=== PATIENT | female | born 1955 | race Caucasian/White ===

== ENCOUNTER → 2016-11-14 | Outpatient (CLI) | payer OTHER ==
--- NOTE | 2016-11-14 13:17 | MM ---
Reason for exam: screening (asymptomatic). Last mammogram was performed 1 year and 1 month ago. History: Patient is postmenopausal and is nulliparous. Reductions of both breasts, September 2007. Took hormonal contraceptives for 4 years beginning at age 18. Physical Findings: A clinical breast exam by your physician is recommended on an annual basis and results should be correlated with mammographic findings. MG Screening Mammo w CAD Bilateral CC and MLO view(s) were taken. Prior study comparison: October 09, 2015, bilateral MG screening mammo w CAD. September 04, 2014, bilateral MG diagnostic mammo w CAD RAÚL. The breast tissue is almost entirely fat. There is no discrete abnormality. Post reduction change in the right breast. ASSESSMENT: Benign, BI-RAD 2 RECOMMENDATION: Routine screening mammogram of both breasts in 1 year.
== END | disposition home or self-care (01) ==
LOC: RADMAMWWP 08:11
PROVIDERS: ATTEND Family Medicine
DX: Z12.31 Encounter for screening mammogram for malignant neoplasm of breast (principal)

== ENCOUNTER → 2017-12-16 | Outpatient (CLI) | payer OTHER ==
--- NOTE | 2017-12-18 10:38 | MM ---
Reason for exam: screening (asymptomatic). Last mammogram was performed 1 year and 1 month ago. History: Patient is postmenopausal and is nulliparous. Reductions of both breasts, September 2007. Took hormonal contraceptives for 4 years beginning at age 18. Physical Findings: A clinical breast exam by your physician is recommended on an annual basis and results should be correlated with mammographic findings. MG Screening Mammo w CAD Bilateral CC and MLO view(s) were taken. Prior study comparison: November 14, 2016, bilateral MG screening mammo w CAD. October 09, 2015, bilateral MG screening mammo w CAD. There are scattered fibroglandular densities. Finding: There are typically benign round, diffuse/scattered calcifications in both breasts. No suspicious abnormality. No significant changes in finding since November 14, 2016 and October 09, 2015. ASSESSMENT: Benign, BI-RAD 2 RECOMMENDATION: Routine screening mammogram of both breasts in 1 year.
== END ==
LOC: RADMAMWWP 09:33
PROVIDERS: ATTEND Family Medicine
DX: Z12.31 Encounter for screening mammogram for malignant neoplasm of breast (principal)
CPT/HCPCS: 77067

== ENCOUNTER → 2019-01-15 | Outpatient (CLI) | payer OTHER ==
--- NOTE | 2019-01-17 09:47 | MM ---
Reason for exam: screening (asymptomatic). Last mammogram was performed 1 year and 1 month ago. History: Patient is postmenopausal and is nulliparous. Reductions of both breasts, September 2007. Took hormonal contraceptives for 4 years beginning at age 18. Physical Findings: A clinical breast exam by your physician is recommended on an annual basis and results should be correlated with mammographic findings. MG 3D Screening Mammo W/Cad Bilateral CC and MLO view(s) were taken. Prior study comparison: December 16, 2017, bilateral MG screening mammo w CAD. November 14, 2016, bilateral MG screening mammo w CAD. There are scattered fibroglandular densities. Stable benign calcifications. No significant changes when compared with prior studies. ASSESSMENT: Benign, BI-RAD 2 RECOMMENDATION: Routine screening mammogram of both breasts in 1 year.
== END | disposition home or self-care (01) ==
LOC: RADMAMWWP 08:21
PROVIDERS: ATTEND Family Medicine
DX: Z12.31 Encounter for screening mammogram for malignant neoplasm of breast (principal)
CPT/HCPCS: 77063; 77067

== ENCOUNTER → 2020-03-28 | Outpatient (CLI) | payer OTHER ==
--- NOTE | 2020-03-30 08:56 | MM ---
Reason for exam: screening (asymptomatic). Last mammogram was performed 1 year and 2 months ago. History: Patient is postmenopausal and is nulliparous. Reductions of both breasts, September 2007. Took hormonal contraceptives for 4 years beginning at age 18. Physical Findings: A clinical breast exam by your physician is recommended on an annual basis and results should be correlated with mammographic findings. MG 3D Screening Mammo W/Cad Bilateral CC and MLO view(s) were taken. Prior study comparison: January 15, 2019, bilateral MG 3d screening mammo w/cad. December 16, 2017, bilateral MG screening mammo w CAD. There are scattered fibroglandular densities. Stable band of tissue or fold posterior right breast. No significant changes when compared with prior studies. ASSESSMENT: Negative, BI-RAD 1 RECOMMENDATION: Routine screening mammogram of both breasts in 1 year.
== END | disposition home or self-care (01) ==
LOC: RADMAMWWP 11:04
PROVIDERS: ATTEND Family Medicine
DX: Z12.31 Encounter for screening mammogram for malignant neoplasm of breast (principal)
CPT/HCPCS: 77063; 77067

== ENCOUNTER 2020-05-28 09:22 | Day surgery (SDC) | payer OTHER ==
[2020-05-25 13:02] VITALS: BMI 28.8
[~2020-05-28 09:22] MED LIST: DEXAMETHASONE SOD PHOSPHATE 10 MG/ML 1 ML VIAL IV ONE; HYDROmorphone 0.5 MG/0.5 ML SYRINGE IVP PRN; LACTATED RINGERS 1,000 ML IV SCH; ONDANSETRON 4 MG/2 ML VIAL IVP ONE
[2020-05-28 09:50] VITALS: TEMP 98.2
[2020-05-28] MEDS ORDERED: LIDOCAINE 1% (10MG/ML) FOR IV START INTRADERMA ONE (09:55)
[2020-05-28] MEDS ORDERED: PROPOFOL 10 MG/ML 20 ML VIAL IV ONE (10:52)
[2020-05-28] MEDS ORDERED: IV FLUID CONTINUATION 400 ML IV ONE (11:25)
--- NOTE | 2020-05-28 11:26 | P.PCN ---
Date of Procedure: 05/28/20 Description of Procedure: BRIEF HISTORY: Patient is a 64-year-old female presenting for outpatient colonoscopy for a personal history of colon polyps. Last colonoscopy 6 years ago per patient report. No change in bowel habits or blood per rectum. She does have a history of colon polyps. PROCEDURE PERFORMED: Colonoscopy with polypectomy. PREOPERATIVE DIAGNOSIS: Personal history of colon polyps, last colonoscopy 6 years ago. ESTIMATED BLOOD LOSS: Minimal. IV sedation per Anesthesia. PROCEDURE: After informed consent was obtained, the patient, was brought into the endoscopy unit. IV sedation was administered by Anesthesia under continuous monitoring. Digital rectal examination was normal. Initially the Olympus CF-190 flexible video colonoscope was then inserted in the rectum, gradually advanced into the cecum without any difficulty. Careful examination was performed as the scope was gradually being withdrawn. Ileocecal valve and the appendiceal orifice were visualized and appeared normal. Prep was excellent. Mucosa of the cecum, ascending colon, transverse colon, descending colon, sigmoid colon, and rectum appeared normal. 4 diminutive polyps measuring 2-3 mm in size removed with cold forcep polypectomy, 2 from the sigmoid, one from the ascending colon and one from the descending colon. A few scattered diverticula noted in the sigmoid colon. Retroflexion was performed in the rectum and no lesions were seen. The patient tolerated the procedure well. IMPRESSION: 4 diminutive polyps removed with cold forceps from the ascending colon, descending colon and 2 from the sigmoid. Mild sigmoid diverticulosis. RECOMMENDATIONS: Findings of this examination were discussed with the patient in her family. Okay to resume diet. Okay to resume medications. Await pathology from polypectomies. Would recommend repeat colonoscopy in 5 years pending pathology from polypectomies.
[2020-05-28 11:38] VITALS: RESP 20
[2020-05-28 12:00] VITALS: BP 183/82; PULSE 66
== END 2020-05-28 12:06 | disposition home or self-care (01) ==
LOC: ORWHC2ENDO 09:22
PROVIDERS: ATTEND Internal Medicine
DX: Z12.11 Encounter for screening for malignant neoplasm of colon (principal); D12.5 Benign neoplasm of sigmoid colon; D12.2 Benign neoplasm of ascending colon; K63.5 Polyp of colon; K63.89 Other specified diseases of intestine; Q27.33 Arteriovenous malformation of digestive system vessel; K57.30 Diverticulosis of large intestine without perforation or abscess without bleeding; I10 Essential (primary) hypertension; I34.1 Nonrheumatic mitral (valve) prolapse; E07.9 Disorder of thyroid, unspecified; Z86.010 Personal history of colon polyps; Z88.5 Allergy status to narcotic agent; Z79.899 Other long term (current) drug therapy; Z79.890 Hormone replacement therapy; Z98.890 Other specified postprocedural states; Z96.651 Presence of right artificial knee joint
CPT/HCPCS: 88305; 45380; 45388; J2704; 45382

== ENCOUNTER → 2021-08-27 | Outpatient (CLI) | payer MEDICARE ==
--- NOTE | 2021-08-29 11:43 | MM ---
Reason for exam: screening (asymptomatic). Last mammogram was performed 1 year and 5 months ago. History: Patient is postmenopausal and is nulliparous. Reductions of both breasts, September 2007. Took hormonal contraceptives for 4 years beginning at age 18. MG Screening Mammo w CAD Bilateral CC and MLO view(s) were taken. Prior study comparison: March 28, 2020, bilateral MG 3d screening mammo w/cad. January 15, 2019, bilateral MG 3d screening mammo w/cad. There are scattered fibroglandular densities. There are benign appearing round calcifications bilaterally. There is no discrete abnormality. ASSESSMENT: Benign, BI-RAD 2 RECOMMENDATION: Routine screening mammogram of both breasts in 1 year.
== END | disposition home or self-care (01) ==
LOC: RADMAMWWP 07:49
PROVIDERS: ATTEND Family Medicine
DX: Z12.31 Encounter for screening mammogram for malignant neoplasm of breast (principal); Z78.0 Asymptomatic menopausal state
CPT/HCPCS: 77067

== ENCOUNTER → 2022-08-28 | Outpatient (CLI) | payer MEDICARE ==
--- NOTE | 2022-08-29 13:12 | MM ---
Reason for Exam: Screening (asymptomatic). Last screening mammogram was performed 12 month(s) ago. Patient History: Menarche at age 8. Patient has no children. Postmenopausal. Hormonal Contraceptives, starting at age 18 for 4 years. 09/2007, Bilateral Reduction. Risk Values: Kaycee 5 year model risk: 2.1%. NCI Lifetime model risk: 6.7%. Prior Study Comparison: 01/15/2019 Bilateral Screening Mammogram, [facility]. 03/28/2020 Bilateral Screening Mammogram, [facility]. 08/27/2021 Bilateral Screening Mammogram, [facility]. Tissue Density: There are scattered fibroglandular densities. Findings: Analyzed By CAD. Scattered punctate calcifications are present. Appears stable. No significant interval changes are evident. No suspicious groups of microcalcifications, spiculated or lobular masses, architectural distortion or other secondary signs of malignancy are mammographically apparent. Overall Assessment: Benign, BI-RAD 2 Management: Screening Mammogram of both breasts in 1 year. A negative mammogram report should not preclude additional follow up of suspicious palpable abnormalities. Patient should continue monthly self breast exam. A clinical breast exam by your physician is recommended on an annual basis and results should be correlated with mammographic findings. Electronically signed and approved by: Lee Foster D.O. Radiologis
== END | disposition home or self-care (01) ==
LOC: RADMAMWWP 14:43
PROVIDERS: ATTEND Family Medicine
DX: Z12.31 Encounter for screening mammogram for malignant neoplasm of breast (principal); Z78.0 Asymptomatic menopausal state
CPT/HCPCS: 77063; 77067

== ENCOUNTER → 2023-09-11 | Outpatient (CLI) | payer MEDICARE ==
--- NOTE | 2023-09-11 13:11 | MM ---
Reason for Exam: Screening (asymptomatic). Last screening mammogram was performed 12 month(s) ago. Patient History: Menarche at age 8. Patient has no children. Postmenopausal. Hormonal Contraceptives, starting at age 18 for 4 years. 09/2007, Bilateral Reduction. Risk Values: Kaycee 5 year model risk: 2.1%. NCI Lifetime model risk: 6.4%. Prior Study Comparison: 03/28/2020 Bilateral Screening Mammogram, [facility]. 08/27/2021 Bilateral Screening Mammogram, [facility]. 08/28/2022 Bilateral MG 3D screening mammo w/cad, [facility]. Tissue Density: The breast tissue is almost entirely fat. Findings: Analyzed By CAD. There is no suspicious group of microcalcifications or new suspicious mass. Benign-appearing calcifications bilaterally. Overall Assessment: Benign, BI-RAD 2 Management: Screening Mammogram of both breasts in [address] [facility] will attempt to contact patient to return for supplemental views and ultrasound if indicated. Patient should continue monthly self-breast exams. A clinical breast exam by your physician is recommended on an annual basis. This exam should not preclude additional follow-up of suspicious palpable abnormalities. Note on Kaycee scores and lifetime risk: 1. A Kaycee score greater than 3% is considered moderate risk. If this is the case, consider specialist referral to assess eligibility for a risk reducing agent. 2. If overall lifetime risk for the development of breast cancer is 20% or higher, the patient may qualify for future screening with alternating mammogram and breast MRI. Electronically signed and approved by: Baron Reyes DO
== END | disposition home or self-care (01) ==
LOC: RADMAMWWP 07:00
PROVIDERS: ATTEND Family Medicine
DX: Z12.31 Encounter for screening mammogram for malignant neoplasm of breast (principal); Z78.0 Asymptomatic menopausal state
CPT/HCPCS: 77063; 77067

== ENCOUNTER → 2024-09-26 | Outpatient (CLI) | payer MEDICARE ==
--- NOTE | 2024-09-26 11:51 | MM ---
Reason for Exam: Screening (asymptomatic). Last mammogram was performed 1 year(s) and 1 month(s) ago. Patient History: Menarche at age 8. Patient has no children. Postmenopausal. Hormonal Contraceptives, starting at age 18 for 4 years. 09/2007, Bilateral Reduction. Risk Values: Kaycee 5 year model risk: 2.1%. NCI Lifetime model risk: 6.1%. Prior Study Comparison: 08/27/2021 Bilateral Screening Mammogram, [facility]. 08/28/2022 Bilateral MG 3D screening mammo w/cad, [facility]. 09/11/2023 Bilateral MG 3D screening mammo w/cad, [facility]. Tissue Density: The breasts are almost entirely fatty. Analyzed By CAD. Overall Assessment: Benign, BI-RAD 2 Management: Screening Mammogram of both breasts in 1 year. Electronically signed and approved by: Tobias Gerard M.D.
== END | disposition home or self-care (01) ==
LOC: RADMAMWWP 08:53
PROVIDERS: ATTEND Family Medicine
DX: Z12.31 Encounter for screening mammogram for malignant neoplasm of breast (principal); Z78.0 Asymptomatic menopausal state; R92.313 Mammographic fatty tissue density, bilateral breasts
CPT/HCPCS: 77063; 77067

== ENCOUNTER → 2024-12-08 | Outpatient (CLI) | payer MEDICARE | END | disposition home or self-care (01) | LOC: LABPAT 10:54 | PROVIDERS: ATTEND Orthopaedic Surgery | DX: Z01.818 Encounter for other preprocedural examination (principal); Z53.9 Procedure and treatment not carried out, unspecified reason ==

== ENCOUNTER → 2025-01-16 | Outpatient (CLI) | payer MEDICARE ==
[2025-01-16 15:38] LABS: Blood Urea Nitrogen 16.5 mg/dL (9.0-27.0); Calcium 9.8 mg/dL (8.7-10.3); Carbon Dioxide 22.6 mmol/L (21.6-31.8); Chloride 103 mmol/L (96-109); Glucose 120 mg/dL (70-110); Potassium 4.6 mmol/L (3.5-5.5); Sodium 139 mmol/L (135-145)
[2025-01-16 15:41] LABS: Basophils # (A) 0.05 X 10*3/uL (0.00-0.10); Basophils % (A) 0.5 %; Eosinophils # (A) 0.13 X 10*3/uL (0.04-0.35); Eosinophils % (A) 1.4 %; HCT 45.3 % (37.2-46.3); HGB 14.9 g/dL (12.0-15.0); Lymphocytes # (A) 1.43 X 10*3/uL (0.90-5.00); Lymphocytes % (A) 15.3 %; MCHC 32.9 g/dL (32.0-37.0); MCV 97.4 FL (80.0-97.0); Mean Platelet Volume 10.7 FL (9.5-12.2); Monocytes # (A) 0.67 X 10*3/uL (0.20-1.00); Monocytes % (A) 7.2 %; NRBC Per 100 WBC 0 X 10*3/uL (0.00-0.01); Neutrophils # (A) 7.06 X 10*3/uL (1.80-7.70); Neutrophils % (A) 75.5 %; Platelet Count 327 X 10*3/uL (140-440); RBC 4.65 X 10*6/uL (4.10-5.20); WBC 9.35 X 10*3/uL (4.50-10.00)
[2025-01-16 21:30] LABS: INR 0.98 sec (0.93-1.11)
== END | disposition home or self-care (01) ==
LOC: LABPAT 10:59
PROVIDERS: ATTEND Orthopaedic Surgery
DX: Z22.322 Carrier or suspected carrier of Methicillin resistant Staphylococcus aureus (principal); M17.12 Unilateral primary osteoarthritis, left knee
CPT/HCPCS: 80048; 85025; 85610; 87070

== ENCOUNTER 2025-01-31 05:42 | Day surgery (SDC) | payer MEDICARE ==
--- NOTE | 2025-01-30 08:22 | P.HPOR ---
History of Present Illness H&P Date: 01/30/25 Chief Complaint: Left knee pain The patient is a 69-year-old female who presents with progressive left knee pain and weakness along with stiffness for the past year worsening recently. She has a difficult time with weightbearing activities. She has tried medications in addition to an injection without much relief. She notes daily pain that limits her. Review of Systems Per HPI Past Medical History Past Medical History: Hearing Disorder / Deafness, Hyperlipidemia, Hypertension, Thyroid Disorder Additional Past Medical History / Comment(s): mitral valve prolapse, states occa sional palpitations., very [place] . psoriasis, heart murmur History of Any Multi-Drug Resistant Organisms: None Reported Past Surgical History: Joint Replacement, Orthopedic Surgery Additional Past Surgical History / Comment(s): jesus breast reduction, cystoscopy, repair tendon x3 left hand, total right knee Past Anesthesia/Blood Transfusion Reactions: Postoperative Nausea & Vomiting (PONV) Smoking Status: Never smoker - Past Family History Mother Family Medical History: No Reported History Medications and Allergies Home Medications Medication Instructions Recorded Confirmed Type Atenolol [Tenormin] 25 mg PO DAILY 09/04/14 01/25/25 History Levothyroxine Sodium [Synthroid] 100 mcg PO DAILY 09/04/14 01/25/25 History ALPRAZolam [Xanax] 1 mg PO TID PRN 05/25/20 01/25/25 History Cetirizine HCl 10 mg PO DAILY PRN 01/25/25 01/25/25 History Ibuprofen [Motrin] 400 mg PO Q8HR PRN 01/25/25 01/25/25 History Meloxicam 7.5 mg PO DAILY 01/25/25 01/25/25 History Multivitamins, Thera [Multivitamin 1 tab PO DAILY 01/25/25 01/25/25 History (formulary)] Rosuvastatin [Crestor] 10 mg PO DAILY 01/25/25 01/25/25 History Allergies Allergy/AdvReac Type Severity Reaction Status Date / Time meperidine HCl [From Demerol] AdvReac Severe Vomiting Verified 01/25/25 11:06 Physical Examination - Knee left Appearance: effusion Effusion grade: grade 2 Tenderness with palpation: anterior, lateral Gait: limping ROM: extension: -15 degrees ROM: flexion: 120 degrees Crepitus with motion: Yes Strength: extension: 5/5 Strength: flexion: 5/5 Meniscal tests: lateral meniscal tests: positive, lateral joint line pain: positive Results Patient is a well-developed well-nourished female approximately 5 foot 5, 170 pounds of mesomorphic habitus. HEENT exam is nonfocal, neck is supple. She has painless passive motion of her left hip. Straight leg raise is negative. She is tender about the lateral joint line of the left knee. Collaterals are stable, Jarvis's negative, Gab's is equivocal. She has genu valgum alignment. Her distal neurovascular exam appears intact in the left lower extremity. - Diagnostic results Knee x-ray: image reviewed (X-rays of the left knee obtained in the office show severe lateral and patellofemoral compartment osteoarthrosis with subchondral sclerosis and [id number] changes.) Assessment and Plan Assessment: Left knee severe lateral and patellofemoral compartment osteoarthrosis Plan: I talked to the patient at length regarding her condition along with treatment options. At this point she is quite symptomatic having pain and mechanical symptoms related to her left knee osteoarthrosis despite conservative measures. After a thorough discussion she has to proceed with surgery. We will plan to proceed with a left total knee arthroplasty. Risks and benefits were discussed at length in layman's terms. We will institute DVT prophylaxis postoperatively.
[~2025-01-31 05:42] MED LIST changes: -DEXAMETHASONE SOD PHOSPHATE 10 MG/ML 1 ML VIAL IV ONE; -HYDROmorphone 0.5 MG/0.5 ML SYRINGE IVP PRN; -LACTATED RINGERS 1,000 ML IV SCH; -ONDANSETRON 4 MG/2 ML VIAL IVP ONE; +TRANEXAMIC 1,000 MG/100ML-NACL 1,000 MG in SALINE 1 100ML.BAG IVPB PRN
[2025-01-31] MEDS ORDERED: LIDOCAINE 1% (10MG/ML) FOR IV START INTRADERMA PRN (06:11)
[2025-01-31] MEDS: IV FLUID CONTINUATION 1,000 ML IV ONE (06:33)
[2025-01-31] MEDS: ACETAMINOPHEN TAB 500 MG TAB PO PRN (06:53)
[2025-01-31] MEDS: DEXAMETHASONE SOD PHOSPHATE 4 MG/ML 1 ML VIAL IV ONE (06:54)
[2025-01-31] MEDS: MELOXICAM 7.5 MG TAB PO PRN (06:54)
[2025-01-31] MEDS: LACTATED RINGERS 1,000 ML IV SCH (06:54)
[2025-01-31] MEDS: ONDANSETRON 4 MG/2 ML VIAL IVP ONE (06:54)
[2025-01-31] MEDS: fentaNYL (PF) 50 MCG/ML 2 ML AMP IV PRN (07:00)
[2025-01-31] MEDS: MIDAZOLAM 2 MG/2 ML VIAL IV ONE (07:00)
[2025-01-31] MEDS: ceFAZolin 2 GM in DEXTROSE 5% IN WATER 50 ML IVPB PRN (07:30)
[2025-01-31] MEDS ORDERED: SODIUM CHLORIDE 0.9% (PF) 10 ML VIAL ONE (07:30)
[2025-01-31] MEDS ORDERED: fentaNYL (PF) 50 MCG/ML 2 ML AMP ONE (07:30)
[2025-01-31] MEDS ORDERED: PROPOFOL 10 MG/ML 20 ML VIAL IV ONE (07:30)
[2025-01-31] MEDS ORDERED: DEXAMETHASONE SOD PHOSPHATE 4 MG/ML 1 ML VIAL ONE (07:30)
[2025-01-31] MEDS ORDERED: TRANEXAMIC 1,000 MG/100ML-NACL PREMIX BAG ONE (07:30)
[2025-01-31] MEDS ORDERED: ROPIVACAINE 5 MG/ML 30 ML VIAL ONE (07:30)
[2025-01-31] MEDS ORDERED: MIDAZOLAM 2 MG/2 ML VIAL ONE (07:30)
[2025-01-31] MEDS: ceFAZolin 1,000 MG in SODIUM CHLORIDE 0.9% 1,000 ML IRRIGATION ONE (07:59)
[2025-01-31] MEDS ORDERED: MAGNESIUM HYDROXIDE 2,400 MG/30 ML CUP PO PRN (09:05)
[2025-01-31] MEDS ORDERED: NALOXONE 0.4 MG/ML 1 ML VIAL IV PRN (09:05)
[2025-01-31] MEDS ORDERED: HYDROcodone/APAP 5-325MG 1 EACH TAB PO PRN (09:05)
[2025-01-31] MEDS ORDERED: HYDROmorphone 0.5 MG/0.5 ML SYRINGE IVP PRN (09:05)
--- NOTE | 2025-01-31 09:22 | P.ANPRN ---
Procedure Note - Anesthesia - Nerve Block Performed Left Adductor Canal Infusion Time Out Performed: Yes (0659) Date of Procedure: 01/31/25 Procedure Start Time: 07:00 Procedure Stop Time: 07:05 Location of Patient: PreOp Indication: Acute Post-Operative Pain, Requested by Surgeon Specifically requested for management of pain by : Piyush Pace Sedation Type: Sedate with meaningful contact maintained Preparation: Sterile Prep, Sterile Dressing Position: Supine Catheter Depth at Skin (cm): 6 Catheter: Indwelling Needle Types: Pajunk Needle Gauge: 18 Ultrasound used to visualize needle placement: Yes Ultrasound used to observe medication spread: Yes Injectate: 0.5% Ropivacaine (see comment for volume) (15CC+5CC NACL PF +DECADRON 4MG) Blood Aspirated: No Pain Paresthesia on Injection Noted: No Resistance on Injection: Normal Image Stored and Saved: Yes Events: Uneventful and Well Tolerated
--- NOTE | 2025-01-31 09:22 | P.ANPRN ---
Procedure Note - Anesthesia - Nerve Block Performed Left iPack Single Time Out Performed: Yes (0659) Date of Procedure: 01/31/25 Procedure Start Time: : Procedure Stop Time: : Location of Patient: PreOp Indication: Acute Post-Operative Pain, Requested by Surgeon Specifically requested for management of pain by DrNunu: Piyush Pace Sedation Type: Sedate with meaningful contact maintained Preparation: Sterile Prep Position: Supine Catheter: None Needle Types: Pajunk Needle Gauge: 21 Ultrasound used to visualize needle placement: Yes Ultrasound used to observe medication spread: Yes Injectate: 0.5% Ropivacaine (see comment for volume) (15CC+5CC NACL PF +DECADRON 4MG) Blood Aspirated: No Pain Paresthesia on Injection Noted: No Resistance on Injection: Normal Image Stored and Saved: Yes Events: Uneventful and Well Tolerated
--- NOTE | 2025-01-31 09:27 | P.OP ---
Date of Procedure: 01/31/25 Preoperative Diagnosis: Left knee severe tricompartmental osteoarthrosis Postoperative Diagnosis: Same Procedure(s) Performed: Left total knee arthroplastycementedcruciate retaining Implants: [employer] journey 2 size 5 cemented femoral component, size 4 cemented tibial component, 9 mm articular surface, 32 mm cemented patellar component. This is a cruciate retaining implant. Anesthesia: regional, spinal Surgeon: Piyush Pace Visual Specialist #1: Michele Markham Estimated Blood Loss (ml): 50 Pathology: none sent Condition: stable Disposition: PACU Indications for Procedure: The patient is a 69-year-old female who presents with progressive left knee pain secondary to osteoarthrosis despite conservative measures. A discussion of the risks and benefits of operative intervention versus continued conservative measures was made with the patient. She opted to proceed with surgery. Operative risks include infection, neurovascular injury, development of blood clots, fracture, possible component loosening/failure and possible need for subsequent procedures was discussed. Informed consent was obtained. Operative Findings: As below Description of Procedure: The patient was brought to the operating room, and after induction of spinal anesthesia the left lower extremity was prepped and draped in a normal fashion. The tourniquet was inflated to 270 mmHg. A longitudinal incision extending 3 finger breaths above the superior pole of the patella extending to the medial aspect the tibial tubercle was then made. The skin and subcutaneous tissues were divided sharply. Electrocautery was used for hemostasis. A medial parapatellar arthrotomy was then performed. The medial soft tissues to include the superficial and deep portions of the medial collateral ligament as well as the medial hamstring tendons were elevated subperiosteally. The proximal medial tibia osteophytes were carefully removed. The patella was everted. The knee was flexed. A portion of the retropatellar fat pad was excised sharply. The anterior cruciate ligament was sacrificed. A starting hole was made in the distal femur 1 cm anterior to the posterior cruciate origin. An intramedullary femoral guide was gently inserted planning on 5 valgus distal cut with 9 mm distal resection. The cutting block was pinned in place. The distal cut was then made. The posterior referencing sizing guide was utilized. 3 of external rotation was built into the system and verified off the trans- epicondylar axis and the posterior condyles. I felt size 5 was most appropriate. The cutting block was pinned in place. The anterior, posterior, and chamfer cuts were then made. The bone fragments were removed. A sulcus cut was then made with the appropriate guide. The trial size 5 femoral component was then placed and was fully seated. There was good anterior to posterior and medial to lateral fit. The distal peg holes were then drilled. The trial component was then removed. Attention was then paid towards preparing the proximal tibia. An extra medullary guide was utilized in line with the tibial shaft and second metatarsal distally. A 7 posterior slope was planned. I pl anned on 2 mm resection from the medial compartment. The cutting block was pinned in place. The proximal tibial cut was then made. The bone was removed in one fragment. The remnants of the medial and lateral menisci were excised the capsule junction with electrocautery. The tibia sized most appropriately at size 4. The posterior osteophytes off the distal femur were carefully removed with a curved osteotome. The trial tibial and femoral components were placed along with a 9 millimeters articular surface. I was able to obtain full flexion and extension with good stability with varus and valgus stress. After several flexion and extension cycles, the tibial rotation was marked with electrocautery in line with the medial one third of the tibial tubercle. Attention was then paid towards preparing the patella. A patella reamer was utilized taking this down to 14 mm of bone stock. A good flush cut was made. The patella sized most appropriately at 32 millimeters. The peg holes were then drilled. The trial component was placed. The knee was taken through a range of motion. I had good patellofemoral tracking with no hands technique. The trial components were then removed. The tibia was prepared in the appropriate rotation with appropriate drill and keel punch. The flexion and extension gaps were checked and felt to be symmetric. The bony surfaces were prepared with pulsatile lavage and dried. The deep tibial component was then cemented in place and was fully seated. Excess cement was removed. The femoral component was cemented in place and was fully seated. Again excess cement was removed. The trial 9 millimeters surface was then inserted in the knee was put in full extension. The patella component was cemented in place. After the cement had sufficiently hardened, the knee was again taken through a range of motion. Again there was good stability in flexion and extension with varus and valgus stress. The trial articular surface was then removed. The final articular surface was placed and was impacted. Care was taken to avoid any soft tissue interposition. Pulsatile lavage was again utilized. The tourniquet was deflated with approximately 60 minutes total tourniquet time. There was minimal drainage therefore a deep drain was not placed. The medial parapatellar arthrotomy was then closed with #2 Ethibond suture. The subcutaneous tissues were reapproximated interrupted 2- 0 Vicryl sutures. The skin was reapproximated with 3-0 subarticular strata fix suture. Skin tape and adhesive was applied. A sterile dressing was applied. T he patient was then awoken from sedation and transferred to recovery room in good condition. Blood loss was estimated at 50 milliliters. No complications were incurred. Sponge and needle counts were correct at the end the case. Michele GARCIA assisted during the major components this case to include exposure, bone resection, and implantation.
[2025-01-31] MEDS: HYDROmorphone 0.5 MG/0.5 ML SYRINGE IVP PRN ×2 (09:36→13:14)
--- NOTE | 2025-01-31 09:50 | XR ---
EXAMINATION TYPE: XR knee limited LT DATE OF EXAM: 01/31/2025 CLINICAL INDICATION: Female, 69 years old with history of Evaluation for Postop abnormality and align ment, knee pain and arthritis status post total knee replacement. pain TECHNIQUE: Portable AP and crosstable lateral views of the left knee are obtained immediately postop eratively. COMPARISON: None FINDINGS: Metallic hardware from total left knee arthroplasty is seen and appears satisfactory in al ignment and position. There is evidence of recent surgery with diffuse subcutaneous gas and soft tis sriram swelling noted. IMPRESSION: METALLIC HARDWARE FROM TOTAL LEFT KNEE ARTHROPLASTY IS SATISFACTORY IN ALIGNMENT. [facility], , 01/31/2025 9:48 AM
[2025-01-31] MEDS: ROPIVACAINE 1,100 MG, SODIUM CHLORIDE 0.9% 500 ML 330 ML, EMPTY PAIN BALL 1 EACH MISCELLANE PRN (09:57)
[2025-01-31] MEDS: ONDANSETRON 4 MG/2 ML VIAL IVP PRN (11:12)
[2025-01-31] MEDS: ceFAZolin 2 GM in DEXTROSE 5% IN WATER 50 ML IVPB SCH (16:44)
[2025-01-31] MEDS: hydrOXYzine pamoate 25 MG CAP PO PRN (16:47)
[2025-01-31] MEDS: HYDROcodone/APAP 7.5-325MG 1 EACH TAB PO PRN (16:48)
[2025-01-31] MEDS: SENNOSIDES-DOCUSATE SODIUM 1 EACH TAB PO SCH (20:35)
[2025-01-31] MEDS ORDERED: ALPRAZolam 1 MG TAB PO PRN (22:49)
[2025-02-01 02:55] VITALS: RESP 16
--- NOTE | 2025-02-01 06:30 | P.PN ---
Progress Note - Text Progress Note Date: 02/01/25 patient was seen and evaluated at bedside. Status post postoperative day 1 for left total knee arthroplasty patient had adductor canal catheter for postop pain control. Patient rated pain at rest 1-2 out of 10 in severity. Patient describes pain is aching, throbbing type on the sides of the knee and back of the knee. Patient started walking with support. With activity patient pain levels are 6-7 out of 10 in severity. With the help of oral pain medications pain levels are tolerable. Patient denied any weakness/ numbness in lower extremities. patient denied any fever, pain over the catheter site. Physical exam: Patient vital signs stable Patient is alert awake oriented 3 responding to all questions appropriately Examination of the catheter site showed dressing intact, no leaking fluid around the catheter, no redness, no tenderness over the catheter insertion area. plan: status post postoperative day 1 for left total knee arthroplasty with adductor canal catheter for pain control. Patient was discussed to continue the medication at the rate until the pump is completely empty and instructed the patient how to discontinue the catheter.
[2025-02-01] MEDS ORDERED: LORATADINE 10 MG TAB PO PRN (08:03)
[2025-02-01 08:11] VITALS: BP 155/85; PULSE 76; TEMP 97.4
[2025-02-01 08:16] LABS: Basophils # (A) 0.02 X 10*3/uL (0.00-0.10); Basophils % (A) 0.1 %; Eosinophils # (A) 0 X 10*3/uL (0.04-0.35); Eosinophils % (A) 0 %; HCT 36.9 % (37.2-46.3); HGB 12.3 g/dL (12.0-15.0); Lymphocytes # (A) 0.79 X 10*3/uL (0.90-5.00); Lymphocytes % (A) 5.5 %; MCH 31.9 pg (27.0-32.0); MCHC 33.3 g/dL (32.0-37.0); MCV 95.8 FL (80.0-97.0); Mean Platelet Volume 10.6 FL (9.5-12.2); Monocytes # (A) 1.01 X 10*3/uL (0.20-1.00); NRBC Per 100 WBC 0 X 10*3/uL (0.00-0.01); Neutrophils % (A) 86.9 %; Platelet Count 290 X 10*3/uL (140-440); RBC 3.85 X 10*6/uL (4.10-5.20); RDW 12.2 % (11.5-14.5); WBC 14.39 X 10*3/uL (4.50-10.00)
--- NOTE | 2025-02-01 08:16 | P.CONS ---
History of Present Illness - Reason for Consult Consult date: 02/01/25 - Chief Complaint Postop arthritic knee repair. - History of Present Illness 69-year-old white female with presbycusis element who is here essentially for knee repair. Seen postop day #1. Doing well. We will restart her home medications if vital signs are stable. No voiding difficulties. Pain is nominal Review of Systems Constitutional: Denies chills, Denies fever Eyes: denies blurred vision, denies pain Ears, nose, mouth and throat: Denies headache, Denies sore throat Cardiovascular: Denies chest pain, Denies shortness of breath Respiratory: Reports as per HPI Past Medical History Past Medical History: Hearing Disorder / Deafness, Hyperlipidemia, Hypertension, Thyroid Disorder Additional Past Medical History / Comment(s): mitral valve prolapse, states occasional palpitations., very ANVIK . psoriasis, heart murmur History of Any Multi-Drug Resistant Organisms: None Reported Past Surgical History: Joint Replacement, Orthopedic Surgery Additional Past Surgical History / Comment(s): jesus breast reduction, cystoscopy, repair tendon x3 left hand, total right knee Past Anesthesia/Blood Transfusion Reactions: Postoperative Nausea & Vomiting (PONV) Past Psychological History: Anxiety Smoking Status: Never smoker Past Alcohol Use History: Daily Additional Past Alcohol Use History / Comment(s): 1 drink/day Past Drug Use History: Marijuana Additional Drug Use History / Comment(s): smokes marijuana, none for 24 hours prior to procedure - Past Family History Mother Family Medical History: No Reported History Medications and Allergies Home Medications Medication Instructions Recorded Confirmed Type Atenolol [Tenormin] 25 mg PO DAILY 09/04/14 01/31/25 History Levothyroxine Sodium [Synthroid] 100 mcg PO DAILY 09/04/14 01/31/25 History ALPRAZolam [Xanax] 1 mg PO TID PRN 05/25/20 01/31/25 History Cetirizine HCl 10 mg PO DAILY PRN 01/25/25 01/31/25 History Ibuprofen [Motrin] 400 mg PO Q8HR PRN 01/25/25 01/31/25 History Meloxicam 7.5 mg PO DAILY 01/25/25 01/31/25 History Multivitamins, Thera [Multivitamin 1 tab PO DAILY 01/25/25 01/31/25 History (formulary)] Rosuvastatin [Crestor] 10 mg PO DAILY 01/25/25 01/31/25 History Allergies Allergy/AdvReac Type Severity Reaction Status Date / Time meperidine HCl [From Demerol] AdvReac Severe Vomiting Verified 01/31/25 06:52 Physical Exam Vitals: Vital Signs Temp Pulse Resp BP Pulse Ox 02/01/25 07:07 97.4 F L 76 16 155/85 95 02/01/25 01:55 97.7 F 74 16 148/65 95 01/31/25 19:10 97.8 F 86 17 156/78 96 01/31/25 13:10 97.5 F L 72 16 171/90 98 01/31/25 12:52 64 16 139/70 95 01/31/25 12:22 77 14 151/78 99 01/31/25 11:52 57 L 17 134/64 95 01/31/25 11:22 59 L 19 143/64 93 L 01/31/25 10:52 66 14 154/75 93 L 01/31/25 10:22 62 15 148/66 93 L 01/31/25 10:07 66 14 133/65 97 01/31/25 09:52 60 14 126/62 96 01/31/25 09:37 60 14 132/62 94 L 01/31/25 09:22 98.2 F 58 L 14 120/61 96 Intake and Output 01/31/25 02/01/25 02/01/25 22:59 06:59 14:59 Intake Total 750 Balance 750 Intake: Oral 750 Other: Voiding Method Toilet # Voids 2 4 - Constitutional General appearance: cooperative, no acute distress - EENT Eyes: EOMI - Neck Neck: no lymphadenopathy - Respiratory Respiratory: bilateral: diminished - Cardiovascular Rhythm: regular Heart sounds: normal: S1, S2 Abnormal Heart Sounds: no S3 Gallop - Gastrointestinal General gastrointestinal: soft, no tenderness - Integumentary Integumentary: no cellulitis - Psychiatric Psychiatric: A&O x's 3, appropriate affect, intact judgment & insight Assessment and Plan (1) Hypothyroidism (acquired) Current Visit: Yes Status: Acute Code(s): E03.9 - HYPOTHYROIDISM, UNSPECIFIED SNOMED Code(s): 682839637 (2) Anxiety Current Visit: Yes Status: Acute Code(s): F41.9 - ANXIETY DISORDER, UNSPECIFIED SNOMED Code(s): 87001679 (3) Osteoarthritis of right knee Current Visit: No Status: Acute Code(s): M17.9 - OSTEOARTHRITIS OF KNEE, UNSPECIFIED SNOMED Code(s): 198367629321196 Plan: Reconcile home medications. Pain to be left up to surgical team at this time. Will continue to follow from a medical perspective the patient is stable postoperatively. Time with Patient: Greater than 30
[2025-02-01] MEDS: RIVAROXABAN 10 MG TAB PO SCH (08:41)
[2025-02-01] MEDS: ATORVASTATIN 20 MG TAB PO SCH (08:41)
[2025-02-01] MEDS: atenoloL 25 MG TAB PO SCH (08:41)
[2025-02-01] MEDS: LEVOTHYROXINE 100 MCG TAB PO SCH (08:41)
[2025-02-01] MEDS: MULTIVITAMINS, THERA 1 EACH TAB PO SCH (08:41)
--- NOTE | 2025-02-01 11:30 | P.DS ---
Providers Date of admission: 01/31/2025 Expected date of discharge: 02/01/25 Attending physician: Piyush Pace Consults: 01/31/25 09:05 Consult Physician Routine Consulting Provider: Emery Villatoro Reason/Comments: medical management s/p left total knee arthroplasty Do you want consulting provider notified?: Yes Primary care physician: Emery Villatoro Hospital Course: Date of admission: 01/31/2025 Date of discharge: 02/01/2025 Admission diagnosis: Left knee osteoarthritis Discharge diagnosis: Same Attending physician: Dr. Pace Surgical procedures: Left total knee arthroplasty Brief history: Patient is a 69-year-old female with a history of progressive primary left knee osteoarthritis. At this point patient has failed conservative treatment measures and has opted to proceed with a elective left total knee arthroplasty. Hospital course: Details of patient's surgery can be found in operative report. Patient tolerated the procedure well and was subsequently transported to orthopedic floor. Patient's orthopeidc and medical care was provided daily. Patient had daily laboratory tests performed for evaluation of overall blood counts . Patient had daily physical therapy to include strengthening range of motion as well as education with walker ambulation. Patient was treated with Xarelto for their postoperative DVT prophylaxis during their inpatient stay. Jc kurtz was noted to have a relatively uneventful postoperative course. Patient reported satisfactory pain control with oral pain medications by postoperative day 1. Patient showed satisfactory progress with physical therapy. Patient moved steadily through the program and had no difficulty meeting the goals by postoperative day 1. Given patient's otherwise satisfactory course and having met physical therapy goals, plan is to discharge patient home with health services on postoperative day 1. Discharge condition/disposition: Patient will be discharged home with health services in stable condition. Discharge medications: Instructions are given on resumption of patient's normal daily medications per primary care recommendation, in addition patient will be prescribed [place]; senna; Eliquis 2.5 mg twice daily x 2 weeks. Discharge instructions: 1. Wound care and infection precautions, keep incision dry and covered while showering, no lotions, creams, moisturizers. No soaking, tubs, pools, hottubs. Do not scrub over the incision. 2. Weight-bear as tolerated with walker / cane until follow-up. 3. Ice and elevate when necessary. Do not exceed 20 minutes per hour with ice pack. 4. Utilize compression sleeve until seen at first follow up appointment. 5. Visiting nursing care. 6. Home physical therapy including home CPM. 7. Pain meds and anticoagulants per prescription. 8. Pain medication has potential to cause constipation. Increase oral fluid and fiber intake. Contact primary care provider if you have not had a bowel movement within 48 hours after discharge 9. No anti-inflammatory medication until discussed at first post operative visit, this including Motrin, Aleve, Mobic, Diclofenac. 10. Follow up in office at 2 weeks postop with Cesar Giordano PA-C / Michele Markham PA-C 11. Follow up with your primary care doctor 7-10 days after discharge. 12. Contact [facility] with any questions, . Assessment: Left knee osteoarthritis Procedures: Left total knee arthroplasty Patient Condition at Discharge: Good Plan - Discharge Summary Discharge Rx Participant: No New Discharge Prescriptions: New HYDROcodone/APAP 7.5-325MG [[place] 7.5-325] 1 - 2 tab PO Q6HR PRN #36 tab PRN Reason: Pain Apixaban [Eliquis] 2.5 mg PO BID #60 tab Sennosides/Docusate Sodium [Senna Plus 8.6-50 mg Softgel] 1 each PO DAILY #20 capsule No Action Levothyroxine Sodium [Synthroid] 100 mcg PO DAILY Atenolol [Tenormin] 25 mg PO DAILY ALPRAZolam [Xanax] 1 mg PO TID PRN PRN Reason: Anxiety Meloxicam 7.5 mg PO DAILY Ibuprofen [Motrin] 400 mg PO Q8HR PRN PRN Reason: Pain Cetirizine HCl 10 mg PO DAILY PRN PRN Reason: Allergy Symptoms Multivitamins, Thera [Multivitamin (formulary)] 1 tab PO DAILY Rosuvastatin [Crestor] 10 mg PO DAILY Discharge Medication List Atenolol [Tenormin] 25 mg PO DAILY 09/04/14 [History] Levothyroxine Sodium [Synthroid] 100 mcg PO DAILY 09/04/14 [History] ALPRAZolam [Xanax] 1 mg PO TID PRN 05/25/20 [History] Cetirizine HCl 10 mg PO DAILY PRN 01/25/25 [History] Ibuprofen [Motrin] 400 mg PO Q8HR PRN 01/25/25 [History] Meloxicam 7.5 mg PO DAILY 01/25/25 [History] Multivitamins, Thera [Multivitamin (formulary)] 1 tab PO DAILY 01/25/25 [History] Rosuvastatin [Crestor] 10 mg PO DAILY 01/25/25 [History] Apixaban [Eliquis] 2.5 mg PO BID #60 tab 02/01/25 [Rx] HYDROcodone/APAP 7.5-325MG [[place] 7.5-325] 1 - 2 tab PO Q6HR PRN #36 tab 02/01/25 [Rx] Sennosides/Docusate Sodium [Senna Plus 8.6-50 mg Softgel] 1 each PO DAILY #20 capsule 02/01/25 [Rx] Follow up Appointment(s)/Referral(s): Michele Markham, [place] [PHYSICIAN [employer]] - 2 Weeks [facility],Equipment [NON-STAFF] - As Needed (*Call [facility] once home to arrange delivery of the Continuous Passive Motion (CPM) machine. ) [facility], [NON-STAFF] - 1-2 Days ([facility] will call you to schedule your in home nursing and physical therapy visits. ) Patient Instructions/Handouts: Knee Replacement (GEN) Activity/Diet/Wound Care/Special Instructions: Orthopedic Discharge Instructions: 1. Wound care and infection precautions, keep incision dry and covered while showering, no lotions, creams, moisturizers. No soaking, pools, hot tubs. Do not scrub over incision. 2. Weight-bear as tolerated with walker / cane until follow-up. 3. Ice and elevate when necessary. Do not exceed 20 minutes per hour with ice pack. 4. Utilize compression sleeve until seen at first follow up appointment. 5. Pain meds and anticoagulants per prescription. 6. Pain medication has potential to cause constipation. Increase oral fluid and fiber intake. Contact primary care provider if you have not had a bowel movement within 48 hours after discharge. 7. No anti-inflammatory medication until discussed at first post operative visit, this including Motrin, Aleve, Mobic, Diclofenac. 8. Follow up in office at 2 weeks postop with Cesar Giordano PA-C / Michele Markham PA-C 9. Follow up with your primary care doctor 7-10 days after discharge. 10. Contact [facility] with any questions, . Keep incision clean, dry, intact. While showering, cover fusion tape with Saran wrap. Keep fusion tape on until follow-up appointment in office in 2 weeks. Discharge Disposition: HOME WITH HOME HEALTH SERVICES
--- NOTE | 2025-02-01 11:47 | P.PN ---
Subjective Progress Note Date: 02/01/25 Principal diagnosis: Left knee osteoarthritis Patient was seen at bedside this morning sitting up in chair with Philip bandage present over left knee. Patient says she did do well with therapy this morning. Patient says she has urinated since surgery yesterday without issue. Patient says she does need a walker for home. Patient says pain is controlled with oral medication. Patient denies any other issues at this time. Objective - Vital Signs Vital signs: Vital Signs Temp 97.4 F L 02/01/25 07:07 Pulse 76 02/01/25 07:07 Resp 16 02/01/25 07:07 BP 155/85 02/01/25 07:07 Pulse Ox 95 02/01/25 07:07 FiO2 Intake & Output 01/31/25 02/01/25 02/01/25 18:59 06:59 18:59 Intake Total 551 750 Output Total 50 Balance 501 750 Weight 76.9 kg Intake: IV 551 Oral 750 Output: Estimated Blood Loss 50 Other: Voiding Method Toilet # Voids 2 4 - Exam Left knee: Incision is clean, dry, and intact. The exofin fusion tape is in good condition. There is minimal soft tissue swelling and ecchymosis surrounding the medial and lateral aspects of the incision. Calf is soft, no tenderness with pa lpation. Plantar flexion, dorsiflexion, EHL, FHL are intact. Sensory exam to light touch throughout the extremity is intact, dorsal pedis pulses 2+. - Labs CBC & Chem 7: 02/01/25 03:46 Labs: Abnormal Lab Results - Last 24 Hours (Table) 02/01/25 Range/Units 03:46 WBC 14.39 H (4.50-10.00) X 10*3/uL RBC 3.85 L (4.10-5.20) X 10*6/uL Hct 36.9 L (37.2-46.3) % Immature Gran # 0.07 H (0.00-0.04) X 10*3/uL Neutrophils # 12.50 H (1.80-7.70) X 10*3/uL Lymphocytes # 0.79 L (0.90-5.00) X 10*3/uL Monocytes # 1.01 H (0.20-1.00) X 10*3/uL Eosinophils # 0 L (0.04-0.35) X 10*3/uL Assessment and Plan Assessment: 1. Left knee osteoarthritis -Postop day 1 status post left total knee arthroplasty Plan: 1. Left knee osteoarthritis -left total knee arthroplasty performed yesterday, 01/31/2025. Patient stable bedside this morning. Prescription for walker was signed. Patient did do well with therapy. Discharge home today with health services. 2. Appreciate medical management 3. Pain management -[place] 4. DVT prophylaxis -Xarelto in hospital. Going home with Eliquis 2.5 mg twice daily x 2 weeks 5. GI prophylaxis -senna 6. PT/OT -weightbearing as tolerated walker 7. Encourage incentive spirometer use 8. Discharge planning -discharge home today with health services. Time with Patient: Less than 30
== END 2025-02-01 13:17 | disposition home health service (06) ==
LOC: OR 05:42 → 4SSUR 09:12 → OR 02-01 13:17
PROVIDERS: ATTEND Orthopaedic Surgery
DX: M17.0 Bilateral primary osteoarthritis of knee (principal); G89.18 Other acute postprocedural pain; I10 Essential (primary) hypertension; E78.5 Hyperlipidemia, unspecified; I34.1 Nonrheumatic mitral (valve) prolapse; E03.9 Hypothyroidism, unspecified; L40.9 Psoriasis, unspecified; F41.9 Anxiety disorder, unspecified; F41.0 Panic disorder [episodic paroxysmal anxiety]; H91.90 Unspecified hearing loss, unspecified ear; Z91.89 Other specified personal risk factors, not elsewhere classified; Z79.890 Hormone replacement therapy; Z79.1 Long term (current) use of non-steroidal anti-inflammatories (NSAID); Z79.899 Other long term (current) drug therapy; Z88.5 Allergy status to narcotic agent
CPT/HCPCS: 27447; 97161; 64448; 64473; 85025; 73560; C1713; C1776; C1751; J2250; J1100; J0690 ×2; J2405; J3010; J2795; J2704; J1171; 64474